=== PATIENT | male | born 1970 | race Two or more races ===

== ENCOUNTER 2017-05-05 21:09 | Emergency (ER) | payer OTHER ==
[~2017-05-05] VITALS: Ht 182.9 cm; Wt 86.2 kg
[~2017-05-05 21:09] MED LIST: AMOXICILLIN500 MG ORAL; IBUPROFEN600 MG ORAL; NORCO 10/3251 EA ORAL; NORCO 5-325 TA1 EACH ORAL
[2017-05-05] MEDS ORDERED: Norco 5mg/325mg tab ORAL ONE (22:45)
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
[2017-05-05 23:46] VITALS: BP 0/0
--- NOTE | 2017-05-06 09:51 | Diagnostic Imaging Report ---
Indication: pain Findings: Single AP view of the pelvis was performed. Acute fracture of the right intertrochanteric region of the hip noted. No obvious other fractures are seen. Impression: Right hip fracture
--- NOTE | 2017-05-06 09:51 | Diagnostic Imaging Report ---
Indications: hip pain Findings: Two views of the right hip were obtained. Study was done portably. Views are limited and positioning and image projection are unorthodox. There is a fracture that appears to involve the intertrochanteric region. There is evidence of comminution with what appears to be an avulsion of the lesser trochanter. The femoral neck itself is not visualized adequately. Impression: Acute comminuted fracture of the intertrochanteric region of the right hip. Evaluation is limited as discussed above.
== END 2017-05-05 23:47 | disposition left against medical advice (07) ==
LOC: EMR 21:35
DX: S72.091A Other fracture of head and neck of right femur, initial encounter for closed fracture (principal); S00.531A Contusion of lip, initial encounter; Y04.2XXA Assault by strike against or bumped into by another person, initial encounter; Y92.89 Other specified places as the place of occurrence of the external cause; I10 Essential (primary) hypertension
CPT/HCPCS: 72170; 99283